=== PATIENT | female | born 1960 | race African-American/Black ===

== ENCOUNTER → 2021-01-14 | Day surgery (SDC) | payer OTHER | END | disposition home or self-care (01) | LOC: JRADUS-SUR 12:45 | PROVIDERS: ATTEND Family Medicine | PROC: 0H9U3ZX Drainage of Left Breast, Percutaneous Approach, Diagnostic (ICD-10-PCS; principal; 2021-01-14) | DX: C50.812 Malignant neoplasm of overlapping sites of left female breast (principal) | CPT/HCPCS: 19083; 77065-TC; 87899; A4648 ==

== ENCOUNTER 2021-02-16 04:40 | Inpatient (IN) | payer OTHER ==
[2021-02-16] MEDS ORDERED: PROPOFOL 20 ML ONE (11:10)
[2021-02-16] MEDS ORDERED: MIDAZOLAM HCL 2 MG/2 ML SINGLE DOSE VIAL ONE (11:10)
[2021-02-16] MEDS ORDERED: ceFAZolin SODIUM 1 GM VIAL IVPB ONE (11:38)
[2021-02-16] MEDS ORDERED: EPHEDRINE SULFATE/0.9% NACL/PF 50 MG/10 ML SYRINGE NR ONE (11:57)
[2021-02-16] MEDS ORDERED: KETOROLAC TROMETHAMINE 30 MG/1 ML VIAL ONE ×2 (13:53→13:54)
[2021-02-16] MEDS ORDERED: ACETAMINOPHEN 1000 MG/100 ML VIAL (NON FORMULARY) IVPB ONE (14:01)
[2021-02-16] MEDS ORDERED: ACETAMINOPHEN INJECTION 100 ML IVPB ONE (14:55)
[2021-02-16] MEDS ORDERED: ONDANSETRON 4 MG/2 ML VIAL ONE ×2 (15:53→17:12)
[2021-02-16] MEDS ORDERED: ONDANSETRON 4 MG/2 ML VIAL IVPUSH PRN (15:55)
[2021-02-16] MEDS ORDERED: PROMETHAZINE HCL 25 MG/1 ML VIAL IVPUSH PRN (15:55)
[2021-02-17] MEDS ORDERED: ACETAMINOPHEN 500 MG TABLET (FP) PO PRN (07:05)
[2021-02-17 09:05] LABS: BASO % 0.4 % (0-2.0); EOS % 0.1 % (0-4.5); HEMATOCRIT 19.9 % (32.4-45.2); LYMPH % 24.6 % (8-40); MCH 33.1 pg (25.7-33.7); MCHC 34.7 g/dl (32.0-36.0); MEAN CELL VOLUME 95.5 fl (80-96); MEAN PLT VOLUME 10.3 fl (7.5-11.1); MONO % 14.4 % (3.8-10.2); NEUT % 60.5 % (42.8-82.8); PLATELET COUNT 95 K/MM3 (134-434); RBC 2.08 M/mm3 (3.60-5.2); RDW 14.4 % (11.6-15.6); WHITE BLOOD COUNT 6.9 K/mm3 (4.0-10.0)
[2021-02-17 09:13] LABS: CHLORIDE 111 mmol/L (98-107); HEMOGLOBIN 6.9 GM/dL (10.7-15.3); SODIUM 144 mmol/L (136-145)
[2021-02-17 09:15] LABS: CALCIUM 7.6 mg/dL (8.5-10.1)
[2021-02-17 09:16] LABS: ALBUMIN 2.4 g/dl (3.4-5.0); ANION GAP 5 MMOL/L (8-16); BLOOD UREA NITROGEN 16.7 mg/dL (7-18); CO2 28 mmol/L (21-32); GLUCOSE,RANDOM 121 mg/dL (74-106)
[2021-02-17 09:18] LABS: SGPT/ALT 15 U/L (13-61)
[2021-02-17 09:19] LABS: CREATININE 0.9 mg/dL (0.55-1.3); SGOT/AST 13 U/L (15-37)
[2021-02-17 09:20] LABS: BILIRUBIN,TOTAL 0.7 mg/dL (0.2-1); TOT PROT 4.5 g/dl (6.4-8.2)
[2021-02-17 09:22] LABS: ALK PHOS 28 U/L (45-117)
[2021-02-17] MEDS ORDERED: ceFAZolin SODIUM 1 GM VIAL ONE ×2 (11:59→21:49)
[2021-02-17] MEDS ORDERED: DEXTROSE 5%-WATER - 50 ML IVPB ONE ×2 (12:00→21:49)
[2021-02-17] MEDS: LACTATED RINGERS SOLUTION 1,000 ML/1,000 ML INFUS.BAG IV SCH (12:02)
[2021-02-17] MEDS: CEFAZOLIN 1 GM in DEXTROSE 5%-WATER - 50 ML IVPB SCH ×2 (12:02→22:00)
[2021-02-17 16:50] VITALS: BMI 19.4
[2021-02-18] MEDS ORDERED: ceFAZolin SODIUM 1 GM VIAL ONE ×2 (04:49→12:21)
[2021-02-18] MEDS: CEFAZOLIN 1 GM in DEXTROSE 5%-WATER - 50 ML IVPB SCH (04:51)
[2021-02-18 08:24] LABS: CHOLESTEROL 122 mg/dL (50-200)
[2021-02-18 08:25] LABS: LDL CHOLESTEROL (ONLY SJRH) 52 mg/dL (5-100); TRIGLYCERIDES 40 mg/dL (0-150)
[2021-02-18 08:27] LABS: HDL CHOLESTEROL 56 mg/dL (40-60); N-TERMINAL BNP 92.3 pg/ml (5-125)
[2021-02-18 09:11] LABS: HEMATOCRIT 30.6 % (32.4-45.2); HEMOGLOBIN 10.7 GM/dL (10.7-15.3); MCH 31.3 pg (25.7-33.7); MCHC 34.8 g/dl (32.0-36.0); MEAN CELL VOLUME 89.7 fl (80-96); MEAN PLT VOLUME 9.8 fl (7.5-11.1); PLATELET COUNT 75 K/MM3 (134-434); RBC 3.41 M/mm3 (3.60-5.2); RDW 15.7 % (11.6-15.6); WHITE BLOOD COUNT 5.9 K/mm3 (4.0-10.0)
[2021-02-18] MEDS ORDERED: DEXTROSE 5%-WATER - 50 ML IVPB ONE (12:21)
[2021-02-18] MEDS: CEPHALEXIN MONOHYDRATE 500 MG CAPSULE (UD) PO SCH ×2 (13:15→21:03)
[2021-02-18] MEDS: LACTATED RINGERS SOLUTION 1,000 ML/1,000 ML INFUS.BAG IV SCH (21:04)
[2021-02-19] MEDS: CEPHALEXIN MONOHYDRATE 500 MG CAPSULE (UD) PO SCH (05:35)
[2021-02-19 06:24] VITALS: BP 134/74; PULSE 50; TEMP 98.1
[2021-02-19] MEDS ORDERED: ACETAMINOPHEN 325 MG TABLET (FP) PO PRN (07:15)
[2021-02-19] MEDS ORDERED: oxyCODONE HCL 5 MG TABLET PO PRN (07:15)
== END 2021-02-19 11:19 | disposition home health service (06) | DRG 580 ==
LOC: JASU-SURG 04:40 → J8W 18:59 → JASU-SURG 19:00
PROVIDERS: ADMIT Surgery; ATTEND Surgery
PROC: 0HTV0ZZ Resection of Bilateral Breast, Open Approach (ICD-10-PCS; principal; 2021-02-16 09:30)
PROC: 07B60ZX Excision of Left Axillary Lymphatic, Open Approach, Diagnostic (ICD-10-PCS; 2021-02-16 09:30)
PROC: 30233N1 Transfusion of Nonautologous Red Blood Cells into Peripheral Vein, Percutaneous Approach (ICD-10-PCS; 2021-02-17)
DX: C50.812 Malignant neoplasm of overlapping sites of left female breast (principal); C77.3 Secondary and unspecified malignant neoplasm of axilla and upper limb lymph nodes; D62 Acute posthemorrhagic anemia; I10 Essential (primary) hypertension; E78.5 Hyperlipidemia, unspecified; F41.9 Anxiety disorder, unspecified; I95.9 Hypotension, unspecified; E86.0 Dehydration; R00.1 Bradycardia, unspecified
CPT/HCPCS: 36415; 36430; 78195-TC; 80053; 80061; 82962; 83036; 83721; 83880; 84443; 84484; 85025; 85027; 86850; 86900; 86901; 86922; 93005; 93010; 94010; 94760; A9541; J0131; P9058

== ENCOUNTER 2021-03-03 19:58 | Emergency (ER) | payer OTHER ==
[2021-03-03 20:04] VITALS: BP 123/65; PULSE 69; TEMP 97.5; BMI 19.5
== END 2021-03-03 21:44 | disposition home or self-care (01) ==
LOC: JER 19:58
DX: N64.59 Other signs and symptoms in breast (principal)
CPT/HCPCS: 99283-25

== ENCOUNTER 2021-03-17 04:45 | Inpatient (IN) | payer OTHER ==
[2021-03-16 10:47] VITALS: BMI 19.5
[2021-03-17] MEDS ORDERED: PROPOFOL 20 ML ONE (07:26)
[2021-03-17] MEDS ORDERED: DEXAMETHASONE SOD PHOSPHATE 4 MG/1 ML VIAL ONE (07:26)
[2021-03-17] MEDS ORDERED: MIDAZOLAM HCL 2 MG/2 ML SINGLE DOSE VIAL ONE (07:26)
[2021-03-17] MEDS ORDERED: LIDOCAINE HCL/PF 2% SDV 5ML VIAL ONE (07:26)
[2021-03-17] MEDS ORDERED: SUCCINYLCHOLINE CHLORIDE 200 MG/10 ML SYRINGE ONE (07:26)
[2021-03-17] MEDS ORDERED: METHYLENE BLUE 1% 10 MG/1 ML VIAL IVPUSH ONE (07:46)
[2021-03-17] MEDS ORDERED: ceFAZolin SODIUM 1 GM VIAL IVPB ONE ×2 (07:47→09:14)
[2021-03-17] MEDS ORDERED: EPHEDRINE SULFATE/0.9% NACL/PF 50 MG/10 ML SYRINGE NR ONE (09:29)
[2021-03-17] MEDS ORDERED: ONDANSETRON 4 MG/2 ML VIAL IVPUSH PRN (10:20)
[2021-03-17] MEDS ORDERED: LACTATED RINGERS SOLUTION 1,000 ML IV SCH (10:30)
[2021-03-17] MEDS ORDERED: ONDANSETRON 4 MG/2 ML VIAL IVPB PRN (10:51)
[2021-03-17] MEDS ORDERED: ACETAMINOPHEN 500 MG TABLET (FP) PO PRN (10:51)
[2021-03-17] MEDS ORDERED: ALPRAZolam 0.25 MG TABLET PO ONE (10:51)
[2021-03-17] MEDS ORDERED: LACTATED RINGERS SOLUTION 1,000 ML/1,000 ML INFUS.BAG IV SCH (11:00)
[2021-03-17] MEDS ORDERED: ACETAMINOPHEN 1000 MG/100 ML VIAL (NON FORMULARY) IVPB ONE (11:50)
[2021-03-17] MEDS ORDERED: oxyCODONE HCL 5 MG TABLET PO PRN ×2 (14:45)
[2021-03-17] MEDS ORDERED: ACETAMINOPHEN 325 MG TABLET (FP) PO PRN ×2 (14:45)
[2021-03-17] MEDS ORDERED: ceFAZolin SODIUM 1 GM VIAL ONE (18:12)
[2021-03-17] MEDS: CEFAZOLIN 1 GM in DEXTROSE 5%-WATER - 50 ML IVPB SCH (18:14)
[2021-03-18] MEDS ORDERED: DEXTROSE 5%-WATER - 50 ML IVPB ONE ×2 (00:56→09:27)
[2021-03-18] MEDS ORDERED: ceFAZolin SODIUM 1 GM VIAL ONE ×2 (00:56→09:27)
[2021-03-18] MEDS: CEFAZOLIN 1 GM in DEXTROSE 5%-WATER - 50 ML IVPB SCH ×2 (01:01→09:30)
[2021-03-18 06:36] VITALS: BP 117/66; PULSE 84; TEMP 98.2
== END 2021-03-18 11:39 | disposition home or self-care (01) | DRG 581 ==
LOC: J2C 04:45 → EDSTATUS 09:00 → J6S 14:02
PROVIDERS: ADMIT Surgery; ATTEND Surgery
PROC: 0HTU0ZZ Resection of Left Breast, Open Approach (ICD-10-PCS; principal; 2021-03-17 09:00)
PROC: 07B60ZX Excision of Left Axillary Lymphatic, Open Approach, Diagnostic (ICD-10-PCS; 2021-03-17 09:00)
DX: C50.212 Malignant neoplasm of upper-inner quadrant of left female breast (principal)
CPT/HCPCS: 36415; 85032; 88307-TC; 94010; 94760; J0131